=== PATIENT | male | born 1965 | race American Indian/Alaskan Native ===

== ENCOUNTER 2017-07-11 12:28 | Emergency (ER) | payer SELFPAY ==
[2017-07-11] MEDS ORDERED: Sodium Chloride 0.9% 1,000 ML IV STA (12:55)
--- NOTE | 2017-07-11 12:56 | ED PDOC ---
HPI: Psych/Substance Abuse Time Seen by Provider: 07/11/17 12:33 Chief Complaint (Nursing): Substance Abuse Chief Complaint (Provider): Heroine abuse History Per: Patient, EMS, Family History/Exam Limitations: no limitations Onset/Duration Of Symptoms: Days (today) Additional Complaint(s): Pt. states he did heroine, 3 bags. No etoh. No other drugs. Pt. denies any chest pain, dyspnea, weakness, headaches, fall, pain. No vision changes. Pt. found outside not responding so EMS called. EMS gave narcan intranasal and pt. responding and communicating after. Past Medical History Reviewed: Nursing Documentation, Vital Signs Vital Signs: Last Vital Signs Temp 98 F 07/11/17 12:31 Pulse 89 07/11/17 12:45 Resp 18 07/11/17 12:45 BP 148/99 H 07/11/17 12:31 Pulse Ox 97 07/11/17 12:48 - Medical History PMH: Bipolar Disorder - Family History Family History: States: Unknown Family Hx - Living Arrangements Living Arrangements: With Family - Social History Alcohol: Occasional Drugs: Opiates - Home Medications Home Medications: Ambulatory Orders Medication Instructions Recorded Naproxen 500 mg PO BID #20 tablet 05/16/15 Oxycodone HCl/Acetaminophen 1 tab PO Q6 PRN #12 tab 05/16/15 [Percocet 325 mg-5 mg] Naloxone HCl [Narcan] 4 mg NS ONCE #5 spray 04/02/16 - Allergies Allergies/Adverse Reactions: Allergies Allergy/AdvReac Type Severity Reaction Status Date / Time No Known Allergies Allergy Verified 05/16/15 10:20 Review of Systems ROS Statement: Except As Marked, All Systems Reviewed And Found Negative Physical Exam - Reviewed Nursing Documentation Reviewed: Yes Vital Signs Reviewed: Yes - Physical Exam Appears: Positive for: Non-toxic, No Acute Distress Head Exam: Positive for: ATRAUMATIC, NORMAL INSPECTION, NORMOCEPHALIC Skin: Positive for: Normal Color, Warm, DRY Eye Exam: Positive for: EOMI, Normal appearance, PERRL ENT: Positive for: Normal ENT Inspection Neck: Positive for: Normal, Painless ROM Cardiovascular/Chest: Positive for: Regular Rate, Rhythm Respiratory: Positive for: CNT, Normal Breath Sounds Gastrointestinal/Abdominal: Positive for: Normal Exam, Soft. Negative for: Tenderness Back: Positive for: Normal Inspection. Negative for: L CVA Tenderness, R CVA Tenderness Extremity: Positive for: Normal ROM. Negative for: Tenderness, Pedal Edema Neurologic/Psych: Positive for: Alert, folder seamer automatic II-XII, Oriented. Negative for: Motor/Sensory Deficits - Laboratory Results Result Diagrams: 07/11/17 13:23 07/11/17 13:23 Interpretation Of Abn Labs: 346 etoh - ECG O2 Sat by Pulse Oximetry: 97 Pulse Ox Interpretation: Normal - Progress ED Course And Treament: 1434: Pt. told nurse and family he did the drugs as he is suicidal. Denies any other meds. 1455: Stable. AAOx3. Dr. Ireland to take over care. Etoh elevated. Pending drug screen. Medical clearance pending. Disposition - Clinical Impression Clinical Impression: Alcohol abuse, Heroin abuse - Patient ED Disposition Is Patient to be Admitted: Yes Counseled Patient/Family Regarding: Studies Performed, Diagnosis - Disposition Disposition: Transfer of Care Disposition Time: 14:15 Condition: FAIR Patient Signed Over To: Jeanie Ireland
[2017-07-11 13:30] LABS: BASO % 0.4 % (0.0-2.0); EOS # 0.1 K/uL (0.0-0.7); HEMOGLOBIN 13.3 g/dL (12.0-18.0); LYMPH # 3.5 K/uL (1.0-4.3); LYMPH % 45.9 % (20.0-40.0); MEAN CELL VOLUME 92.6 fl (80.0-94.0); MEAN CORPUSCULAR HEMOGLOBIN 32.9 pg (27.0-31.0); MEAN CORPUSCULAR HGB CONC 35.5 g/dL (33.0-37.0); MEAN PLATELET VOLUME 6.8 fl (7.2-11.7); MONO # 0.7 K/uL (0.0-0.8); MONO % 8.9 % (0.0-10.0); NEUT # 3.4 K/uL (1.8-7.0); NEUT % 43.8 % (50.0-75.0); NRBC % 0.1 % (0.0-0.0); RBC 4.06 Mil/uL (4.40-5.90); RED CELL DISTRIBUTION WIDTH 14.1 % (11.5-14.5); WHITE BLOOD COUNT 7.7 K/uL (4.8-10.8)
[2017-07-11 13:43] LABS: BLOOD UREA NITROGEN 13 mg/dl (9-20); CALCIUM 8.7 mg/dL (8.4-10.2); GFR AFRICAN-AMERICAN > 60; GFR NON-AFRICAN AMERICAN 53
[2017-07-11 15:24] LABS: BARBITURATES, UR NEGATIVE (NEGATIVE); BENZODIAZEPINES, UR NEGATIVE (NEGATIVE); OPIATES, UR POSITIVE (NEGATIVE); PHENCYCLIDINE, UR NEGATIVE (NEGATIVE)
--- NOTE | 2017-07-11 15:31 | ED PDOC ---
- Laboratory Results Result Diagrams: 07/11/17 13:23 07/11/17 13:23 - ECG O2 Sat by Pulse Oximetry: 97 Medical Decision Making Medical Decision Making: Time: 1515 -- Patient signed to me by Dr. Lopez. -- Patient is status post narcan for heroin overdose and ETOH intoxication. Pending ER workup, medical clearance, and crisis evaluation for an . -- Patient is awake, conversing with family, on 1:1 observation, and is no acute distress. -- Crisis made aware. 1900 Pt awake and alert. Reporting he is not suicidal. No signs of withdrawal or intoxication at thist times. Oriented x 3. Evaluated by JOY Rincon who d/w psychiatrist. Pt psychiatrically clear for discharge. Scribe Attestation: Documented by Mis Chan, acting as a scribe for Dr. Jeanie Ireland. Provider Scribe Attestation: All medical record entries made by the Scribe were at my direction and personally dictated by me. I have reviewed the chart and agree that the record accurately reflects my personal performance of the history, physical exam, medical decision making, and the department course for this patient. I have also personally directed, reviewed, and agree with the discharge instructions and disposition. Disposition - Clinical Impression Clinical Impression: Alcohol abuse, Heroin abuse, Alcohol-induced mood disorder - POA Present On Arrival: None - Disposition Referrals: [facility] [Outside] [facility] [Outside] Disposition: Routine/Home Disposition Time: 18:45 Condition: IMPROVED Instructions: Drug Abuse and Drug Addiction (DC), Alcohol Abuse and Alcoholism (DC)
[2017-07-11 18:55] VITALS: O2SAT 97
[2017-07-11 18:56] VITALS: RESP 18
[2017-07-11 18:58] VITALS: BP 141/80; PULSE 91; TEMP 98.1
--- NOTE | 2017-07-13 06:38 | CARD ---
APPROVED REPORT EKG Measurement Heart [id number] <Conclusion> Sinus tachycardia Nonspecific T wave abnormality Abnormal ECG
== END 2017-07-11 19:04 | disposition home or self-care (01) ==
LOC: H.ER 12:28
DX: F10.10 Alcohol abuse, uncomplicated (principal); F11.10 Opioid abuse, uncomplicated; F31.9 Bipolar disorder, unspecified
CPT/HCPCS: 80048; 84484; 85025; 93005; 96360; 99285; G0480; J7040

== ENCOUNTER 2017-08-08 12:49 | Emergency (ER) | payer BC ==
[2017-08-08 12:54] VITALS: O2SAT 99
[2017-08-08] MEDS ORDERED: Tdap Vaccine 0.5 ml Vial (10-64 yrs) IM ONE ×2 (13:16→14:44)
[2017-08-08 13:52] LABS: BASO % 0.6 % (0.0-2.0); EOS # 0.1 K/uL (0.0-0.7); EOS % 1.3 % (0.0-4.0); LYMPH % 43.7 % (20.0-40.0); MEAN CELL VOLUME 93.8 fl (80.0-94.0); MEAN CORPUSCULAR HEMOGLOBIN 31.6 pg (27.0-31.0); MEAN CORPUSCULAR HGB CONC 33.7 g/dL (33.0-37.0); MEAN PLATELET VOLUME 7.2 fl (7.2-11.7); MONO # 0.5 K/uL (0.0-0.8); MONO % 7.6 % (0.0-10.0); NEUT # 3.2 K/uL (1.8-7.0); NEUT % 46.8 % (50.0-75.0); NRBC % 0.1 % (0.0-0.0); RBC 4.43 Mil/uL (4.40-5.90); RED CELL DISTRIBUTION WIDTH 13.9 % (11.5-14.5); WHITE BLOOD COUNT 6.9 K/uL (4.8-10.8)
[2017-08-08 14:13] LABS: ALB/GLOB RATIO 1.1 (1.0-2.1); ALBUMIN 4.5 g/dL (3.5-5.0); ALT/SGPT 46 U/L (21-72); AST/SGOT 59 U/L (17-59); BLOOD UREA NITROGEN 17 mg/dl (9-20); CALCIUM 9.1 mg/dL (8.4-10.2); GFR AFRICAN-AMERICAN > 60; GFR NON-AFRICAN AMERICAN 58
--- NOTE | 2017-08-08 14:30 | RAD ---
PROCEDURE: Right Knee Radiographs. HISTORY: trauma COMPARISON: None. FINDINGS: BONES: No acute fracture. JOINTS: Unremarkable. JOINT EFFUSION: None. OTHER FINDINGS: None. IMPRESSION: No demonstrated fracture or dislocation.
--- NOTE | 2017-08-08 14:46 | ED PDOC ---
HPI: Psych/Substance Abuse Time Seen by Provider: 08/08/17 13:03 Chief Complaint (Nursing): Substance Abuse History Per: Patient, Family () History/Exam Limitations: intoxication Additional Complaint(s): As per pt. left their home today at approximately 1000 to drink alcohol and celebrate his birthday. She was then informed by her neighbors that pt. had "passed out." Pt. was found outside. Admits to drinking. Past Medical History Reviewed: Historical Data, Nursing Documentation, Vital Signs Vital Signs: Last Vital Signs Temp 97.9 F 08/08/17 12:50 Pulse 91 H 08/08/17 12:50 Resp 18 08/08/17 12:50 BP 122/78 08/08/17 12:50 Pulse Ox 99 08/08/17 12:50 - Medical History PMH: Bipolar Disorder Denies: Diabetes, Hepatitis, HIV, HTN, Seizures, Sexually Transmitted Disease - Family History Family History: States: Unknown Family Hx - Home Medications Home Medications: Ambulatory Orders Medication Instructions Recorded Naproxen 500 mg PO BID #20 tablet 05/16/15 Oxycodone HCl/Acetaminophen 1 tab PO Q6 PRN #12 tab 05/16/15 [Percocet 325 mg-5 mg] Naloxone HCl [Narcan] 4 mg NS ONCE #5 spray 04/02/16 - Allergies Allergies/Adverse Reactions: Allergies Allergy/AdvReac Type Severity Reaction Status Date / Time No Known Allergies Allergy Verified 05/16/15 10:20 Review of Systems Review Of Systems: ROS cannot be obtained secondary to pt's inabilty to answer questions. Physical Exam - Reviewed Nursing Documentation Reviewed: Yes Vital Signs Reviewed: Yes - Physical Exam Appears: Positive for: Well, Non-toxic, No Acute Distress Head Exam: Negative for: ATRAUMATIC, NORMAL INSPECTION, NORMOCEPHALIC Skin: Positive for: Normal Color, Warm, DRY Eye Exam: Positive for: EOMI, Normal appearance, PERRL ENT: Positive for: TM Is/Are (no hemotympanum b/l), Other (superficial abrasion to R nostril and R upper lip) Neck: Positive for: Normal, Painless ROM Cardiovascular/Chest: Positive for: Regular Rate, Rhythm, Chest Non Tender Respiratory: Positive for: CNT, Normal Breath Sounds Pulses-Dorsalis Pedis (L): 2+ Pulses-Dorsalis Pedis (R): 2+ Gastrointestinal/Abdominal: Positive for: Normal Exam, Soft, Other (no ecchymosis). Negative for: Tenderness Back: Positive for: Normal Inspection Extremity: Positive for: Normal ROM, Other (superficial abrasion noted to R knee without tenderness or deformity; FROM actively of R knee) Neurologic/Psych: Positive for: Alert, Oriented. Negative for: Aphasia, Facial Droop - Laboratory Results Result Diagrams: 08/08/17 13:43 08/08/17 13:43 - ECG O2 Sat by Pulse Oximetry: 99 - Progress ED Course And Treament: Labs, CT head/cervical spine w/o contrast, R knee x-ray, adacel IM ordered. 1600 On re-evaluation, pt. sleeping comfortably. Pt.'s at bedside and informed of results. 1720 Pt. AOx3. Gait steady unassisted. Requesting to be discharged. Pt. will be discharged under 's care who is still in ED. Informed of results. Offers no complaints. Disposition - Clinical Impression Clinical Impression: Alcohol intoxication, Head injury, Knee injury - Patient ED Disposition Is Patient to be Admitted: No - Disposition Referrals: [facility] [Outside] Disposition: Routine/Home Disposition Time: 17:20 Condition: IMPROVED Additional Instructions: Follow up with PMD for further evaluation. Return to ED immediately for any concerns. Instructions: Alcohol Use - When Is Drinking a Problem?, Closed Head Injury (DC ), Skin Abrasions (DC) Forms: [facility] (French)
--- NOTE | 2017-08-08 15:17 | CT ---
PROCEDURE: CT Cervical Spine without contrast HISTORY: trauma COMPARISON: None available. TECHNIQUE: Axial computed tomography images were obtained of the cervical spine without the use of intravenous contrast. Coronal and sagittal reformatted images were created and reviewed. Radiation dose: Total exam DLP = 543.1 mGy-cm. This CT exam was performed using one or more of the following dose reduction techniques: Automated exposure control, adjustment of the mA and/or kV according to patient size, and/or use of iterative reconstruction technique. FINDINGS: VERTEBRAE: No fracture. Normal alignment. No destructive bony lesion. Multilevel endplate changes. DISCS/SPINAL CANAL/NEURAL FORAMINA: Multilevel disc space narrowing with complete loss of disc space at C5-6. PARASPINAL SOFT TISSUES: Unremarkable. OTHER FINDINGS: None. IMPRESSION: No acute fracture. Multilevel degenerative changes.
--- NOTE | 2017-08-08 15:47 | CT ---
PROCEDURE: CT HEAD WITHOUT CONTRAST. HISTORY: trauma COMPARISON: None available. TECHNIQUE: Axial computed tomography images were obtained through the head/brain without intravenous contrast. Radiation dose: Total exam DLP = 2458 mGy-cm. This CT exam was performed using one or more of the following dose reduction techniques: Automated exposure control, adjustment of the mA and/or kV according to patient size, and/or use of iterative reconstruction technique. FINDINGS: HEMORRHAGE: No intracranial hemorrhage. BRAIN: No mass effect or edema. No atrophy or chronic microvascular ischemic changes. VENTRICLES: Unremarkable. No hydrocephalus. CALVARIUM: Unremarkable. PARANASAL SINUSES: Unremarkable as visualized. No significant inflammatory changes. MASTOID AIR CELLS: Unremarkable as visualized. No inflammatory changes. OTHER FINDINGS: None. IMPRESSION: No acute intracranial pathology.
[2017-08-08 17:37] VITALS: BP 128/78; PULSE 78; RESP 19; TEMP 97
== END 2017-08-08 17:36 | disposition home or self-care (01) ==
LOC: H.ER 12:49
DX: F10.129 Alcohol abuse with intoxication, unspecified (principal); S09.90XA Unspecified injury of head, initial encounter; S89.91XA Unspecified injury of right lower leg, initial encounter; W19.XXXA Unspecified fall, initial encounter; Y92.89 Other specified places as the place of occurrence of the external cause
CPT/HCPCS: 70450; 72125; 73562; 80053; 85025; 90471; 90715; 99282; G0480